=== PATIENT | female | born 1945 | race Two or more races ===

== ENCOUNTER 2020-11-02 00:25 | Emergency (ER) | payer MEDICARE, MEDICAID ==
[~2020-11-02] VITALS: Ht 144.8 cm; Wt 83.0 kg
[2020-11-02] MEDS ORDERED: MORPHINE SULFATE 4 MG/ML CPJ (NOT FOR IM USE) IV STA (03:42)
[2020-11-02] MEDS ORDERED: ONDANSETRON HCL 4MG/2ML INJ IV STA (03:42)
[2020-11-02] MEDS ORDERED: SODIUM CHLORIDE 0.9% 1,000 ML IV ONE (03:45)
[2020-11-02 04:03] LABS: BASOPHILS % 0.4 % (0.0-2.0); EOSINOPHILS % 0.4 % (0.0-5.0); HEMATOCRIT. 37.2 % (36.0-48.0); HEMOGLOBIN. 12.3 g/dL (12.0-16.0); LYMPHOCYTES % 9.7 % (20.0-50.0); MEAN CORPUSCULAR HEMOGLOBIN 28.4 pg (28.0-32.0); MEAN CORPUSCULAR VOLUME 86.2 fL (81.0-99.0); MEAN PLATELET VOLUME 7.2 fl (7.4-10.4); MONOCYTES % 8.1 % (2.0-8.0); NEUTROPHILS % 81.4 % (40.0-76.0); PLATELET 271 x1000/uL (130-400); RED BLOOD CELL COUNT 4.32 mill/uL (4.2-5.4); RED CELL DISTRIBUTION WIDTH 14.2 % (11.6-14.6)
[2020-11-02 04:10] LABS: CHLORIDE 95 mEq/L (98-107)
[2020-11-02] MEDS ORDERED: IOHEXOL-300 100 ML BOTTLE ONE (04:57)
[2020-11-02 07:59] LABS: CLARITY URINE CLOUDY (CLEAR); COLOR URINE YELLOW (YELLOW); KETONES URINE NEGATIVE (NEGATIVE); LEUKOCYTE ESTERASE URINE 2+ (NEGATIVE); NITRITE URINE POSITIVE (NEGATIVE); OCCULT BLOOD URINE TRACE (NEGATIVE); PH URINE 6.5 (4.5-8.0); PROTEIN URINE NEGATIVE (NEGATIVE); SPECIFIC GRAVITY URINE 1.028 (1.005-1.030); UROBILINOGEN URINE 0.2 E.U./dL (0.2-1.0)
[2020-11-02] MEDS ORDERED: IBUP-2028 MT (08:30)
[2020-11-02] MEDS ORDERED: CIPR500T5 MT (08:30)
[2020-11-02 10:06] VITALS: BP 121/52
== END 2020-11-02 10:08 | disposition home or self-care (01) ==
LOC: ER 00:25
DX: N39.0 Urinary tract infection, site not specified (principal); R10.84 Generalized abdominal pain; I11.0 Hypertensive heart disease with heart failure; I50.9 Heart failure, unspecified; Z85.42 Personal history of malignant neoplasm of other parts of uterus; Z90.710 Acquired absence of both cervix and uterus; Z96.642 Presence of left artificial hip joint
CPT/HCPCS: 36415; 74177; 80053; 81003; 83690; 85025; 87086; 93005; 96374; 96375; 99285; J2270; J2405; J7030; Q9967

== ENCOUNTER 2024-08-26 13:14 | Emergency (ER) | payer OTHER ==
[~2024-08-26] VITALS: Ht 165.1 cm; Wt 70.0 kg
[~2024-08-26 13:14] MED LIST: CIPR500T5 MT; IBUP-2028 MT
[2024-08-26 13:15] VITALS: O2SAT 99
[2024-08-26] MEDS: KETOROLAC 15MG/ML VIAL IV ONE (13:45)
[2024-08-26] MEDS: MORPHINE SULFATE 4 MG/ML INJ (FOR IV/IM USE) IV ONE (13:45)
[2024-08-26] MEDS: ONDANSETRON HCL 4MG/2ML INJ IV ONE (13:46)
[2024-08-26] MEDS: ACETAMINOPHEN 325MG TABLET PO ONE (13:46)
[2024-08-26] MEDS: LIDOCAINE 5% PATCH TOP SCH (13:47)
[2024-08-26 15:33] LABS: BASOPHILS % 0.3 % (0.0-2.0); HEMATOCRIT. 24.3 % (36.0-48.0); HEMOGLOBIN. 7.7 g/dL (12.0-16.0); LYMPHOCYTES % 9.1 % (20.0-50.0); MEAN CORPUSCULAR HEMOGLOBIN 28.1 pg (28.0-32.0); MEAN CORPUSCULAR HGB CONC 31.6 g/dL (31.0-37.0); MEAN CORPUSCULAR VOLUME 89.1 fL (81.0-99.0); MEAN PLATELET VOLUME 7.6 fl (7.4-10.4); NEUTROPHILS % 79.6 % (40.0-76.0); PLATELET 298 x1000/uL (130-400); RED BLOOD CELL COUNT 2.73 mill/uL (4.2-5.4); RED CELL DISTRIBUTION WIDTH 14.1 % (11.6-14.6); WHITE BLOOD COUNT 6.8 x1000/uL (4.5-11.0)
[2024-08-26 15:40] LABS: POTASSIUM 4.5 mEq/L (3.5-5.1)
[2024-08-26 15:46] LABS: CREATININE 3.4 mg/dL (0.6-1.0)
[2024-08-26 17:43] VITALS: BP 91/56; PULSE 77; RESP 18; TEMP 36.7; O2SAT 98
== END 2024-08-26 18:32 | disposition short-term general hospital (02) ==
LOC: ER 13:14 → EDBEDREQSVC 16:23 → EDBEDREQTM 16:23 → EDBEDREQ 16:23 → ER 18:32
DX: S32.029A Unspecified fracture of second lumbar vertebra, initial encounter for closed fracture (principal); M54.50 Low back pain, unspecified; I11.0 Hypertensive heart disease with heart failure; I50.9 Heart failure, unspecified; Z90.710 Acquired absence of both cervix and uterus; X58.XXXA Exposure to other specified factors, initial encounter; Y93.89 Activity, other specified; Y92.89 Other specified places as the place of occurrence of the external cause; Y99.8 Other external cause status
CPT/HCPCS: 99285; 72131; 96374; 96375; 80048; 85025; 36415; 73502; 74176; J1885; J2405; J2270